=== PATIENT | male | born 1930 | race Caucasian/White ===

== ENCOUNTER 2016-10-25 08:56 | Emergency (ER) | payer MEDICARE ==
[2016-10-25 09:56] LABS: SPECIFIC GRAVITY 1.025 (1.001-1.030); URINE BILIRUBIN NEGATIVE (NEGATIVE); URINE BLOOD TRACE (NEGATIVE); URINE GLUCOSE (UA) NEGATIVE (NEGATIVE); URINE LEUKOCYTE ESTERASE NEGATIVE (NEGATIVE); URINE NITRITE NEGATIVE (NEGATIVE); URINE PROTEIN 1+ (NEGATIVE); URINE UROBILINOGEN 1 mg/dL (0-1 mg/dl)
[2016-10-25 09:59] LABS: URINE APPEARANCE HAZY; URINE COLOR AMBER
[2016-10-25 10:05] LABS: URINE BACTERIA FEW; URINE CASTS 0-1 HYLINE /lpf; URINE EPITHELIAL CELLS 0 /hpf; URINE MUCUS 3+; URINE RBC 0-1 /hpf; URINE WBC NEG /hpf
--- NOTE | 2016-10-25 10:26 | CT ---
Name: BECKI VELASQUEZ Exam: CT head without contrast Comparison: None Clinical history: Dizziness Technique: Helical CT was performed through the head. Angled axial reconstructions were obtained. Sagittal and coronal reconstructions were obtained as well. No contrast was given. An automated dose reduction technique was used to minimize patient radiation dose. Findings: There is no shift of midline structures. Atrophy and chronic small vessel ischemic changes present. There is no mass, mass effect or hemorrhage. Cisterns are uneffaced. Posterior fossa is unremarkable. Mucoperiosteal thickening is noted within the paranasal sinuses. Mastoid air cells are clear. There is no fracture. Impression: 1. Atrophy and chronic small vessel ischemic change 2. No acute finding Note: The above report was uploaded to [facility]'s electronic medical records system at 1022 hours.
--- NOTE | 2016-10-25 10:32 | CT ---
BECKI VELASQUEZ Noncontrast CT abdomen and Pelvis COMPARISON:05/21/2016 CLINICAL HISTORY: Right flank pain PROCEDURE: Helical CT using multidetector technique was applied to the abdomen and pelvis. No contrast was given per ordering physician. Sagittal, axial and coronal images are reviewed. Findings CT abdomen (noncontrast): Lung bases clear. Heart is not enlarged. Coronary calcifications present. There is no pericardial effusion. Noncontrast images of the liver show no abnormality. Gallbladder surgically absent. There is no suspicious biliary dilation. There is a 3 mm calcification in the tail of pancreas compatible with prior inflammatory process. The spleen, adrenal glands right kidney IVC and portal vein are normal. There are features compatible left renal scar. Left renal vein is retroaortic. Stomach is decompressed. There is mild scattered stool within the colon. Small bowel is unremarkable. There is no free air, free fluid or suspicious adenopathy. Multilevel degenerative C-spine is present. There is a hemangioma in the T12 vertebral body. CT pelvis (noncontrast): Bladder is empty. Prostate is not enlarged. Seminal vesicles are small but symmetric. There is diverticulosis of the redundant sigmoid colon without current CT evidence for diverticulitis. The appendix is not identified but there is no pericecal stranding. Small bowel and colon diameters are within normal limits. There is no free air, free fluid or suspicious adenopathy. Vascular calcifications are present. Left fat filled inguinal hernia is again identified. IMPRESSION: 1. Distal colonic diverticulosis without current evidence for epiglottitis 2. Left fat filled inguinal hernia and small fat filled umbilical hernia similar to the prior 3. Left renal cortical scar. There is no calculus or hydronephrosis. 4. Surgically absent gallbladder 5. Nonvisualization of the appendix. There are no secondary signs of appendicitis Note:The above report was uploaded to [facility]'s electronic medical records system at 1028 hours.
[2016-10-25] MEDS ORDERED: ONDANSETRON 4 MG ODT TAB ONE (10:52)
[2016-10-25] MEDS ORDERED: OXYCODONE/ACETAMINOPHEN 5/325 MG TABLET ONE (10:52)
[2016-10-25] MEDS ORDERED: CYCLOBENZAPRINE HCL 10 MG TABLET ONE (12:26)
== END 2016-10-25 13:06 | disposition home or self-care (01) ==
LOC: ED 08:56
DX: M54.9 Dorsalgia, unspecified (principal); I50.9 Heart failure, unspecified; E11.9 Type 2 diabetes mellitus without complications; E66.9 Obesity, unspecified; J44.9 Chronic obstructive pulmonary disease, unspecified; J45.909 Unspecified asthma, uncomplicated; Z85.820 Personal history of malignant melanoma of skin; Z99.81 Dependence on supplemental oxygen; Z79.899 Other long term (current) drug therapy
CPT/HCPCS: 81001; 74176; 70450; 99284; 99283; A9270 ×2

== ENCOUNTER 2016-12-28 11:05 | Outpatient (CLI) | payer MEDICARE | END 2016-12-28 11:06 | disposition home or self-care (01) | LOC: NC 11:05 | PROVIDERS: ATTEND Family Medicine | DX: E13.9 Other specified diabetes mellitus without complications (principal); Z71.3 Dietary counseling and surveillance; Z68.37 Body mass index [BMI] 37.0-37.9, adult ==

== ENCOUNTER 2017-01-12 08:33 | Inpatient (IN) | payer MEDICARE ==
[2017-01-12] MEDS ORDERED: ALBUTEROL/IPRATROPIUM 2.5/0.5 MG 3 ML/EACH DOSE ONE (08:47)
[2017-01-12] MEDS ORDERED: METHYLPRED SOD SUCCINATE 125 MG VIAL ONE (08:53)
[2017-01-12] MEDS ORDERED: ALBUTEROL SULFATE 5MG/ML INHALANT 20 ML BOT ONE (08:54)
[2017-01-12 09:19] LABS: ABSOLUTE NEUTROPHIL COUNT 8.5 K/mm3 (1.8-7.7); BASO # 0.1 K/mm3 (0.0-0.2); BASO % 0.5 % (0.2-1.0); EOS # 0.5 (0.0-0.5); EOS % 4.3 % (0.9-2.9); HEMATOCRIT 43.6 % (32.0-52.0); HEMOGLOBIN 13.8 gm/l (14.0-18.0); IMM NEUT # 0.1 K/mm3 (0-0.2); IMM NEUT% 0.4 % (0-1); LYMPH # 1.8 (1.0-4.8); LYMPH % 15.7 % (15-45); MEAN CELL VOLUME 89.9 fl (80.0-94.0); MEAN CORPUSCULAR HEMOGLOBIN 28.5 pg (27.0-31.0); MEAN CORPUSCULAR HGB CONC 31.7 g/dl (33.0-37.0); MEAN PLATELET VOLUME 9.7 fl (7.4-10.4); MONO # 0.7 (0.0-0.8); MONO % 5.7 % (4-12); NEUT % 73.4 % (43-75); PLATELET COUNT 266 K/mm3 (130-400); RED CELL DISTRIBUTION WIDTH 12.9 % (11.5-14.5)
[2017-01-12 09:33] LABS: TROPONIN I 0.01 ng/ml (0.0-0.06)
[2017-01-12 09:35] LABS: ALB/GLOB RATIO 1.3 (>1.0); CALCIUM 9.1 mg/dL (8.6-10.3)
[2017-01-12 09:36] LABS: CKMB ISOENZYME 3.1 ng/ml (0.6-6.3)
--- NOTE | 2017-01-12 10:06 | RAD ---
01/12/2017 9:58 AM CHEST - 2 VIEWS History: Increasing shortness of breath since last night Comparison: 11/13/2016 Findings: Two views of the chest are obtained. The lungs are clear with out effusion or pneumothorax. The cardiomediastinal silhouette is unremarkable.. The osseous structures are intact.. IMPRESSION: No acute intrathoracic process.
[2017-01-12] MEDS ORDERED: AZITHROMYCIN 500 MG in SODIUM CHLORIDE 0.9% 250 ML IV ONE (10:30)
[2017-01-12] MEDS ORDERED: BISACODYL 10 MG SUP PR PRN (11:18)
[2017-01-12] MEDS ORDERED: MAGNESIUM HYDROXIDE 30 ML UDCUP PO PRN (11:18)
[2017-01-12] MEDS ORDERED: BISACODYL 5 MG TABLET.EC PO PRN (11:18)
[2017-01-12] MEDS ORDERED: BLISTEX LIPSTICK 1 EACH TP PRN (11:18)
[2017-01-12] MEDS ORDERED: MENTHOL/CETYLPYRD 1 EACH LOZENGE PO PRN (11:18)
[2017-01-12] MEDS ORDERED: METHYLPRED SOD SUCCINATE 40 MG VIAL IV SCH (11:18)
[2017-01-12] MEDS ORDERED: ACETAMINOPHEN 325 MG TABLET PO PRN (11:18)
[2017-01-12] MEDS ORDERED: SODIUM CHLORIDE 0.9% 100 ML IV PRN (11:18)
[2017-01-12 11:39] VITALS: BMI 34.9
[2017-01-12] MEDS: ALBUTEROL/IPRATROPIUM 2.5/0.5 MG 3 ML/EACH DOSE IH SCH ×3 (12:09→19:03)
[2017-01-12] MEDS: ENOXAPARIN SODIUM 40 MG/0.4 ML SYRINGE SUB-Q SCH (12:50)
[2017-01-12] MEDS ORDERED: LIDOCAINE 5% PATCH TP SCH (12:56)
[2017-01-12] MEDS: SPIRONOLACTONE 25 MG TABLET PO SCH (13:43)
[2017-01-12] MEDS: POTASSIUM CHLORIDE 20 MEQ TAB.PRT.SR PO SCH (13:43)
[2017-01-12] MEDS: FUROSEMIDE 40 MG TABLET PO SCH (13:43)
[2017-01-12] MEDS: CLOTRIMAZOLE 1% 15 APPLIC/15 G CREAM TP SCH ×2 (13:43→20:01)
[2017-01-12] MEDS: FLUTICASONE/SALMETEROL 250/50 14 PUFFS/DISK IH SCH ×2 (13:44→20:00)
[2017-01-12] MEDS: METHYLPRED SOD SUCCINATE 40 MG VIAL IV SCH ×2 (14:54→20:00)
[2017-01-12] MEDS ORDERED: LIDOCAINE 5% PATCH TP PRN (15:13)
--- NOTE | 2017-01-12 15:13 | HP ---
BECKI VELASQUEZ [id number] DATE OF ADMISSION: January 12, 2017 CHIEF COMPLAINT: Shortness of breath. HISTORY OF PRESENT ILLNESS: The patient is an 86-year-old male with a past medical history significant for chronic hypoxic respiratory failure on oxygen for chronic obstructive pulmonary disease and asthma who also has a history of obstructive sleep apnea intolerant to CPAP and diabetes and presents with complaints of worsening dyspnea and cough for the last two weeks. He has noticed some increased orthopnea but no increased lower extremity edema during this time. His cough is productive of slightly discolored sputum without hemoptysis. He denies any chest pain or fevers and chills. He has had increased shortness of breath. He has been increasing his nebulizer treatments but in spite of this, worsened and presented to the emergency department where he was stabilized with albuterol nebulizers and solumedrol. He was also started on Zithromax for presumed acute bacterial bronchitis. REVIEW OF SYSTEMS: He has had no recent fevers or chills. He does have some increased weakness with his illness. He denies any recent upper respiratory symptoms. He denies any chest pains or palpitations. He has had some increased wheezing and dyspnea, mild orthopnea. No change in his chronic lower extremity edema, however. He has had no nausea or vomiting, no abdominal pain. No diarrhea or constipation. No headaches, fainting, blackouts or seizures. No urinary complaints. His review of systems is otherwise negative. PAST MEDICAL HISTORY: 1. Is negative for any recent hospitalizations. 2. He has a history of chronic obstructive pulmonary disease followed by [facility], Dr. Doll. He is on chronic home oxygen therapy generally at rate of 3 liters by nasal cannula. Spirometry in the trackmobile operator's office showed moderate air flow obstruction. He has had a history of asthma as a child and has had no significant tobacco use, but has had a lot of particulate exposure during his working years. 3. He has had adult onset diabetes recently diagnosed in the last month and is on oral medications for this. 4. He has had a history of diastolic heart failure several years ago in [facility]. He is not followed by a pneumatic jack operator. 5. He has had a history of malignant melanoma involving the skin, currently in remission after surgical resection. 6. He has had benign prostatic hypertrophy. 7. Hyperlipidemia. 8. Chronic back pain. 9. 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 10. 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 PAST SURGICAL HISTORY: 1. Two prior malignant melanoma excisions from the back including a skin graft. 2. He had a laparoscopic cholecystectomy several years ago in [place]. 3. He has had surgery on his left hand after trauma. 4. He had a remote appendectomy and a remote tonsillectomy. 5. 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 6. He had a transurethral prostatectomy years ago. 7. He has had prior cardiac angiogram in 2005. Results are not available. ALLERGIES: 1. INTOLERANCE TO MORPHINE. 2. ALLERGY TO PENICILLIN. CURRENT MEDICATIONS: Consist of: 1. Albuterol sulfate 2.5 mg nebulized every six hours as needed for wheezing. 2. Percocet 5/325 one to two every four hours as needed for severe pain although he avoids taking this. Generally he only takes it once or twice a year due to side effects. 3. He has albuterol HFA inhaler one to two puffs every four hours as needed for wheezing. 4. Spironolactone 25 mg daily. 5. Potassium chloride 20 mEq daily. 6. Fish oil 1000 mg daily. 7. Lidocaine 5% patch applied to the back when he is having severe pain but not every day. 8. Lasix 40 mg daily. 9. Advair Diskus inhaler 250/50 mcg. It is prescribed one inhalation twice daily but he usually just takes one inhalation once daily due to the cost of the medicine. 10. He also takes an enteric coated aspirin 81 mg daily. FAMILY HISTORY: Positive for a mother with Alzheimer's disease, brother with diabetes and several siblings with asthma. There is also a history of colon cancer in the family. PHYSICAL EXAMINATION: VITAL SIGNS: Temperature is 97.6, pulse 101, blood pressure 117/64, respirations 18 currently, were as high as 26 initially, oxygen saturation 95% on three liters. Body mass index is 35. Weight is 104.3 kilograms. GENERAL: This is an obese male in mild respiratory distress. HEENT: Shows moist, pink oral mucosa, no lesions. NECK: Is supple without lymphadenopathy or thyromegaly. CHEST: Lungs are diminished throughout with some faint wheezes. CARDIOVASCULAR: Exam reveals a mild regular tachycardia. No murmur. ABDOMEN: Is obese, soft, nontender, nondistended with positive bowel sounds. EXTREMITIES: Show no lesions at his left below the knee amputation stump. He does have trace to 1+ peripheral edema in his right lower leg. SKIN: Warm, dry and intact. NEUROLOGIC: He is alert and oriented to place only. DIAGNOSTIC IMAGING STUDIES: Chest x-ray shows no acute cardiopulmonary abnormality. LABORATORY STUDIES: CBC shows a white count mildly elevated at 11.5, hemoglobin is 13.8 with a platelet count of 266,000. Lactate is 1.5. Chemistry profile shows a sodium of 132, potassium 3.9, carbon dioxide 29, BUN 18, creatinine 1.3, glucose 164. Cardiac enzymes and liver function tests are normal. ELECTROCARDIOGRAM: A 12-lead electrocardiogram showing sinus rhythm with a right bundle branch block and evidence of a left anterior fascicular block. ASSESSMENT: 1. Patient is having a chronic obstructive pulmonary disease exacerbation with acute bacterial bronchitis. He also has a history of asthma with a mild exacerbation of that as well. 2. He has chronic hypoxic respiratory failure on home oxygen therapy. 3. He has adult onset diabetes on oral medications. 4. Benign prostatic hypertrophy which is stable. 5. Dementia which is stable. Uncertain whether this is Alzheimer's type versus vascular dementia. PLAN: 1. He is admitted to the medical/surgical unit. 2. He will be treated with IV solumedrol, oxygen supplementation, DuoNebs, albuterol as needed and Zithromax 500 mg IV daily times three. 3. Anticipate he will stay for 48 to 72 hours. 4. Venous thromboembolism prophylaxis is indicated as he is moderate risk and is prescribed in the form of Lovenox. 5. Further treatment and recommendations will depend on his hospital course. 6. We did discuss code status, and his and the patient were clear he is wanting primarily limited additional interventions and probably would not want even positive airway pressure at this point and does not want to be intubated or resuscitated. cc: Kar Oropeza M.D.
[2017-01-12] MEDS: INSULIN ASPART (DOSE) 100 UNITS/1 ML SUB-Q PRN ×2 (17:35→22:20)
[2017-01-12] MEDS: DOCUSATE SODIUM 100 MG CAPSULE PO SCH (20:00)
[2017-01-12] MEDS: ALBUTEROL NEB 2.5 MG/3 ML VIAL.NEB IH PRN (22:38)
[2017-01-13] MEDS: DIPHENHYDRAMINE HCL 25 MG CAPSULE PO PRN ×2 (00:33→21:45)
[2017-01-13] MEDS: ALBUTEROL NEB 2.5 MG/3 ML VIAL.NEB IH PRN ×4 (01:55→23:45)
[2017-01-13] MEDS: METHYLPRED SOD SUCCINATE 40 MG VIAL IV SCH ×4 (02:09→21:35)
[2017-01-13 06:30] LABS: CALCIUM 9.2 mg/dL (8.6-10.3)
[2017-01-13] MEDS: INSULIN ASPART (DOSE) 100 UNITS/1 ML SUB-Q PRN ×4 (07:49→21:46)
[2017-01-13] MEDS: ALBUTEROL/IPRATROPIUM 2.5/0.5 MG 3 ML/EACH DOSE IH SCH ×4 (08:05→20:12)
[2017-01-13] MEDS: DOCUSATE SODIUM 100 MG CAPSULE PO SCH ×2 (08:35→21:35)
[2017-01-13] MEDS: POTASSIUM CHLORIDE 20 MEQ TAB.PRT.SR PO SCH (08:35)
[2017-01-13] MEDS: PANTOPRAZOLE 40 MG TABLET DR PO SCH (08:35)
[2017-01-13] MEDS: FUROSEMIDE 40 MG TABLET PO SCH (08:35)
[2017-01-13] MEDS ORDERED: LACTATED RINGERS 500 ML IV ONE (08:35)
[2017-01-13] MEDS: SPIRONOLACTONE 25 MG TABLET PO SCH (08:36)
[2017-01-13] MEDS: FLUTICASONE/SALMETEROL 250/50 14 PUFFS/DISK IH SCH ×2 (08:36→21:45)
[2017-01-13] MEDS: ASPIRIN (ENTERIC COATED) 81 MG TABLET.EC PO SCH (08:36)
[2017-01-13] MEDS: CLOTRIMAZOLE 1% 15 APPLIC/15 G CREAM TP SCH ×2 (08:42→21:45)
[2017-01-13] MEDS: INSULIN GLARGINE (DOSE) 100 UNITS/ML UNIT SUB-Q SCH (08:49)
[2017-01-13] MEDS ORDERED: PUMP TUBING ONE (08:50)
[2017-01-13] MEDS ORDERED: Non Formulary Drug 1 EACH EA (Omega-3 Fatty Acids/Fish Oil [Fish Oil 1,000 Mg Softgel] 1 E PO SCH (09:00)
[2017-01-13] MEDS: NITROGLYCERIN 0.4 MG/TAB.SUBL BOT SL PRN ×4 (09:18→22:38)
[2017-01-13] MEDS: AZITHROMYCIN 500 MG in SODIUM CHLORIDE 0.9% 250 ML IV SCH (10:25)
[2017-01-13] MEDS: ENOXAPARIN SODIUM 40 MG/0.4 ML SYRINGE SUB-Q SCH (11:11)
[2017-01-13] MEDS ORDERED: FLUTICASONE/SALMETEROL 250/50 14 PUFFS/DISK IH SCH (11:30)
--- NOTE | 2017-01-13 12:32 | PDOC43 ---
- Subjective Chief Complaint: shortness of breath Subjective: Reports Shortness of Breath (stable), Reports Chest Pain (occured this am resolved after one NTG), Denies Vomiting, Denies Fever - Objective Vital Signs Temperature 98.3 F 01/13/17 11:43 Pulse Rate 100 01/13/17 12:04 Respiratory Rate 20 01/13/17 12:04 Blood Pressure 118/73 01/13/17 11:43 O2 Saturation by Pulse Oximetry 95 01/13/17 12:04 Oxygen Delivery Method Nasal Cannula Oxygen Flow Rate 3 Intake and Output 01/12/17 01/13/17 01/14/17 06:59 06:59 06:59 Intake Total 2049 Output Total 2049 Balance 0 General: Alert, Cooperative, No Acute Distress HEENT: Mucous membr. moist/pink Lungs: Diminished at Bases Cardiovascular: Regular Rate and Rhythm Abdomen: Soft, Normal Bowel Sounds, Non-Distended, No Tenderness Extremities: Other (left BKA site clean and dry), No Edema Skin: Warm, Dry, Intact Laboratory 01/13/17 05:30 01/13/17 01/13/17 01/13/17 11:19 07:44 05:30 Estimated GFR 48 L POC Capillary Glucose 254 H 249 H 01/12/17 01/12/17 22:08 17:03 Estimated GFR POC Capillary Glucose 293 H 256 H Current Medications: Current meds reviewed in EMR. - Problems: Assessment/Plan (1) COPD (chronic obstructive pulmonary disease) with acute bronchitis Status: AcuteAssessment/Plan: presumed bacterial bronchitis with acute on chronic hypoxic respiratory failure On Zithromax, Solu-Medrol and nebs - SUPERINTENDENT NONSELLING (2) Diabetes Qualifiers: Diabetes mellitus type: type 2 Diabetes mellitus complication status: with hyperglycemia Diabetes mellitus terminal worker insulin use: without chcf use Qualifier Code: (E11.65) Type 2 diabetes mellitus with hyperglycemia Status: ChronicAssessment/Plan: recently diagnosed and started on Metformin, hyperglycemia aggravated by steroids - cont Novolog, Hold Metformin for 72hrs due to IV contrast, adding Lantus (3) BPH (benign prostatic hyperplasia) Qualifiers: Prostatic enlargement morphology: unspecified morphology Lower urinary tract symptom presence: symptoms present Qualifier Code: (N40.1) Benign prostatic hyperplasia with lower urinary tract symptoms Status: Acute Assessment/Plan: stable, adequate urination but has frequency (4) Chest pain Qualifiers: Chest pain type: unspecified Qualifier Code: (R07.9) Chest pain, unspecified Status: AcuteAssessment/Plan: etiology unclear, could be angina or dyspepsia from steroids, resolved after NTG times one, no further workup given resolution of symptoms, advanced age and code status - NTG PRN, will follow, no changes on tele (5) Dementia Qualifiers: Dementia type: unspecified type Dementia behavioral disturbance: without behavioral disturbance Qualifier Code: (F03.90) Unspecified dementia without behavioral disturbance Status: AcuteAssessment/Plan: severe but stable, no behavioral disturbance (6) CHF (congestive heart failure) Qualifiers: Congestive heart failure type: diastolic Congestive heart failure chronicity: chronic Qualifier Code: (I50.32) Chronic diastolic (congestive) heart failure Status: AcuteAssessment/Plan: appears stable (7) CKD (chronic kidney disease), stage II Status: ChronicAssessment/Plan: stable at baseline VTE Prophylaxis: lovenox Disposition: home in 1-2 days
[2017-01-13] MEDS: ALPRAZOLAM 0.25 MG TABLET PO PRN (21:45)
[2017-01-13 23:44] LABS: A1C-GLYCOHEMOGLOBIN 0.8 g/dl; HEMOGLOBIN-GLYCO 13.1 g/dl
[2017-01-14] MEDS ORDERED: ALPRAZOLAM 1 MG TABLET ONE (00:13)
[2017-01-14] MEDS: LORAZEPAM 2 MG/ML 1ML SDV IV ONE ×2 (00:16→08:02)
[2017-01-14] MEDS: METHYLPRED SOD SUCCINATE 40 MG VIAL IV SCH ×4 (03:48→21:03)
[2017-01-14] MEDS: ALPRAZOLAM 0.25 MG TABLET PO PRN ×2 (03:56→21:18)
[2017-01-14] MEDS: ALBUTEROL NEB 2.5 MG/3 ML VIAL.NEB IH PRN (04:00)
[2017-01-14] MEDS ORDERED: ALPRAZOLAM 0.5 MG TABLET PO ONE (04:24)
[2017-01-14 06:29] LABS: CALCIUM 9.3 mg/dL (8.6-10.3)
[2017-01-14] MEDS ORDERED: LORAZEPAM 2 MG/ML 1ML SDV ONE (07:55)
[2017-01-14] MEDS: ALBUTEROL/IPRATROPIUM 2.5/0.5 MG 3 ML/EACH DOSE IH SCH ×4 (07:58→20:10)
[2017-01-14] MEDS: INSULIN ASPART (DOSE) 100 UNITS/1 ML SUB-Q PRN ×4 (08:32→21:16)
[2017-01-14] MEDS: INSULIN GLARGINE (DOSE) 100 UNITS/ML UNIT SUB-Q SCH (08:33)
[2017-01-14] MEDS: FLUTICASONE/SALMETEROL 250/50 14 PUFFS/DISK IH SCH ×2 (09:05→21:03)
[2017-01-14] MEDS: ASPIRIN (ENTERIC COATED) 81 MG TABLET.EC PO SCH (09:06)
[2017-01-14] MEDS: DOCUSATE SODIUM 100 MG CAPSULE PO SCH ×2 (09:06→21:03)
[2017-01-14] MEDS: PANTOPRAZOLE 40 MG TABLET DR PO SCH (09:06)
[2017-01-14] MEDS: CLOTRIMAZOLE 1% 15 APPLIC/15 G CREAM TP SCH ×2 (09:07→21:03)
[2017-01-14] MEDS ORDERED: PUMP TUBING ONE (10:41)
[2017-01-14] MEDS: ENOXAPARIN SODIUM 40 MG/0.4 ML SYRINGE SUB-Q SCH (10:56)
[2017-01-14] MEDS: AZITHROMYCIN 500 MG in SODIUM CHLORIDE 0.9% 250 ML IV SCH (10:56)
--- NOTE | 2017-01-14 13:04 | PDOC43 ---
- Subjective Chief Complaint: shortness of breath Subjective: Reports Shortness of Breath (slowly improving), Denies Chest Pain, Denies Fever - Objective Vital Signs Temperature 97.6 F 01/14/17 11:00 Pulse Rate 97 01/14/17 11:59 Respiratory Rate 22 01/14/17 11:59 Blood Pressure 117/72 01/14/17 11:00 O2 Saturation by Pulse Oximetry 98 01/14/17 11:59 Oxygen Delivery Method Nasal Cannula Oxygen Flow Rate 2 Intake and Output 01/13/17 01/14/17 01/15/17 06:59 06:59 06:59 Intake Total 2049 2800 Output Total 2049 3300 Balance 0 -500 General: Alert, Cooperative, No Acute Distress HEENT: Mucous membr. moist/pink Lungs: Diminished at Bases, Other (occ wheezing) Cardiovascular: Regular Rate and Rhythm Abdomen: Soft, Normal Bowel Sounds, Non-Distended, No Tenderness Extremities: No Edema Skin: Warm, Dry, Intact Laboratory 01/14/17 05:30 01/14/17 01/14/17 01/13/17 08:05 05:30 21:37 BUN 27 H Estimated GFR 52 L POC Capillary Glucose 220 H 217 H 01/13/17 17:16 BUN Estimated GFR POC Capillary Glucose 210 H Current Medications: Current meds reviewed in EMR. - Problems: Assessment/Plan (1) COPD (chronic obstructive pulmonary disease) with acute bronchitis Status: AcuteAssessment/Plan: presumed bacterial bronchitis with acute on chronic hypoxic respiratory failure On Zithromax, Solu-Medrol and nebs - switch to PO prednisone in am (2) Diabetes Qualifiers: Diabetes mellitus type: type 2 Diabetes mellitus complication status: with hyperglycemia Diabetes mellitus petroleum terminal plant operator insulin use: without detention use Qualifier Code: (E11.65) Type 2 diabetes mellitus with hyperglycemia Status: ChronicAssessment/Plan: recently diagnosed and started on Metformin, hyperglycemia aggravated by steroids, HGB A1C is 7.5, worsening hyperglycemia likely due to steroids - cont Novolog, Hold Metformin for 72hrs due to IV contrast, Lantus started on 01/13 (3) BPH (benign prostatic hyperplasia) Qualifiers: Prostatic enlargement morphology: unspecified morphology Lower urinary tract symptom presence: symptoms present Qualifier Code: (N40.1) Benign prostatic hyperplasia with lower urinary tract symptoms Status: Acute Assessment/Plan: stable, adequate urination but has frequency (4) Chest pain Qualifiers: Chest pain type: unspecified Qualifier Code: (R07.9) Chest pain, unspecified Status: AcuteAssessment/Plan: occured in am on 01/13 etiology unclear, could be angina or dyspepsia from steroids, resolved after NTG times one, no further workup given resolution of symptoms, advanced age and code status, troponin is normal - NTG PRN, will follow, no changes on tele (5) Dementia Qualifiers: Dementia type: unspecified type Dementia behavioral disturbance: without behavioral disturbance Qualifier Code: (F03.90) Unspecified dementia without behavioral disturbance Status: AcuteAssessment/Plan: severe but stable, no behavioral disturbance (6) CHF (congestive heart failure) Qualifiers: Congestive heart failure type: diastolic Congestive heart failure chronicity: chronic Qualifier Code: (I50.32) Chronic diastolic (congestive) heart failure Status: AcuteAssessment/Plan: appears stable (7) CKD (chronic kidney disease), stage II Status: ChronicAssessment/Plan: stable at baseline VTE Prophylaxis: lovenox Disposition: home in am
[2017-01-14] MEDS: DIPHENHYDRAMINE HCL 25 MG CAPSULE PO PRN (21:18)
[2017-01-15] MEDS: ALBUTEROL NEB 2.5 MG/3 ML VIAL.NEB IH PRN (01:36)
[2017-01-15] MEDS: ALPRAZOLAM 0.25 MG TABLET PO PRN ×2 (02:08→07:40)
[2017-01-15] MEDS: METHYLPRED SOD SUCCINATE 40 MG VIAL IV SCH (02:08)
[2017-01-15] MEDS ORDERED: GLIMEPIRIDE 2 MG TABLET PO ONE (06:49)
[2017-01-15] MEDS: ALBUTEROL/IPRATROPIUM 2.5/0.5 MG 3 ML/EACH DOSE IH SCH ×2 (07:03→11:07)
[2017-01-15] MEDS ORDERED: METFORMIN HCL 500 MG TABLET PO SCH (07:30)
[2017-01-15] MEDS: INSULIN GLARGINE (DOSE) 100 UNITS/ML UNIT SUB-Q SCH (08:28)
[2017-01-15] MEDS: INSULIN ASPART (DOSE) 100 UNITS/1 ML SUB-Q PRN ×2 (08:28→11:36)
[2017-01-15] MEDS ORDERED: PREDNISONE 20 MG TABLET PO SCH (09:00)
[2017-01-15] MEDS: DOCUSATE SODIUM 100 MG CAPSULE PO SCH (09:48)
[2017-01-15] MEDS: CLOTRIMAZOLE 1% 15 APPLIC/15 G CREAM TP SCH (09:48)
[2017-01-15] MEDS: FLUTICASONE/SALMETEROL 250/50 14 PUFFS/DISK IH SCH (09:48)
[2017-01-15] MEDS: PANTOPRAZOLE 40 MG TABLET DR PO SCH (09:48)
[2017-01-15] MEDS: ASPIRIN (ENTERIC COATED) 81 MG TABLET.EC PO SCH (09:48)
[2017-01-15] MEDS: ENOXAPARIN SODIUM 40 MG/0.4 ML SYRINGE SUB-Q SCH (11:36)
[2017-01-15 12:02] VITALS: BP 119/76
[2017-01-15] MEDS ORDERED: GUAIFENESIN 600 MG TABLET.DR PO SCH (12:15)
--- NOTE | 2017-01-16 15:09 | DS ---
BECKI VELASQUEZ [id number] DATE OF ADMISSION: January 12, 2017 DATE OF DISCHARGE: January 15, 2017 DISCHARGE DIAGNOSES: Chronic obstructive pulmonary disease exacerbation with acute bacterial bronchitis. OTHER DIAGNOSES: Include: 1. Chronic persistent asthma. 2. Acute on chronic hypoxic respiratory failure. 3. Adult onset diabetes. 4. Benign prostatic hypertrophy. 5. Senile dementia. 6. History of chronic diastolic congestive heart failure. 7. History of stage 2 kidney disease. SUMMARY OF ADMISSION AND HOSPITAL COURSE: The patient is an 86-year-old male with chronic hypoxic respiratory failure on home oxygen therapy and chronic obstructive pulmonary disease who presented with complaints of increasing shortness of breath, cough, and dyspnea. He was evaluated in the emergency department, found to be more tachypneic than baseline and also more hypoxic than at baseline. Chest x-ray showed no acute cardiopulmonary abnormality but CBC showed a mildly elevated white blood cell count of 11.5. Lactate was normal. Creatinine was 1.3 consistent with the patient's baseline chronic kidney disease. He was noted to have increased wheezing and increased work of breathing and was referred to the hospitalist service for admission. The patient was initially treated with solumedrol, Rocephin and Zithromax. He completed a three-day course of Zithromax during his stay. He was transitioned over to oral prednisone during his stay. He was noted to have steroid-induced hyperglycemia managed with Lantus insulin and glimepiride. He was felt to be medically stable for discharge on January 15, 2017. PHYSICAL EXAM: VITAL SIGNS: His discharge vital signs showed a temperature of 98.0, pulse 90, blood pressure is 119/76, respirations 19, oxygen saturation 92% on one liter. Body mass index of 35.9 and a weight of 107.1 kilograms. GENERAL: This is an obese, elderly male in no acute distress. HEENT: Is unremarkable. LUNGS: Reveal diminished breath sounds throughout with scattered wheezing. CARDIOVASCULAR: Exam reveals a regular rate and rhythm without a murmur. ABDOMEN: Is obese, soft, nontender, nondistended with positive bowel sounds. EXTREMITIES: Show no peripheral edema. LABORATORY STUDIES: Done on the day of discharge included none. However, on the day prior to discharge, January 14, 2017, he had a chemistry panel showing a sodium of 136, potassium 4.1, creatinine 1.3, and a glucose of 243. DISPOSITION: Home. DISCHARGE CONDITION: Good. ALLERGIES: 1. PENICILLIN. 2. MORPHINE. CODE STATUS: DO NOT RESUSCITATE/DO NOT INTUBATE. DIET: Diabetic diet. DISCHARGE MEDICATIONS: Include: 1. A new prescription for alprazolam 0.25 mg tablets. He can take one-half tablet every four hours as needed for anxiety, 30 pills, no refills. 2. Keflex 500 mg three times daily for seven days. 3. Glimepiride 2 mg daily for eight days. 4. Guaifenesin LA 600 mg twice daily for 20 days. 5. Prednisone taper 40 mg daily for one day, 20 mg daily for three days and 10 mg daily for ten days. 6. He will resume enteric coated aspirin 81 mg daily. 7. Advair 250/50 mcg inhaler one puff twice daily. 8. Lasix 40 mg every morning. 9. Lidocaine 5% patch applied to painful area daily. 10. Fish oil 1000 mg daily. 11. Potassium chloride 20 mEq daily. 12. Aldactone 25 mg daily. 13. Albuterol HFA inhaler one to two puffs every four hours as needed for wheezing. 14. Percocet one to two tablets every four hours as needed for severe pain. He uses this rarely. 15. Albuterol nebs 2.5 mg every six hours as needed for wheezing. 16. Metformin 1000 mg daily. FOLLOWUP: He will follow up with his primary care provider, Dr. Kar Oropeza, as scheduled on February 26, 2017 at 2:15. Cc: Kar Oropeza M.D.
== END 2017-01-15 15:25 | disposition home or self-care (01) | DRG 191 ==
LOC: ED 08:33 → MS 10:18
PROVIDERS: ADMIT Family Medicine; ATTEND Family Medicine
DX: J44.1 Chronic obstructive pulmonary disease with (acute) exacerbation (principal); J96.11 Chronic respiratory failure with hypoxia; I50.20 Unspecified systolic (congestive) heart failure; J20.9 Acute bronchitis, unspecified; J44.0 Chronic obstructive pulmonary disease with (acute) lower respiratory infection; J45.909 Unspecified asthma, uncomplicated; G47.33 Obstructive sleep apnea (adult) (pediatric); Z79.84 Long term (current) use of oral hypoglycemic drugs; N40.0 Benign prostatic hyperplasia without lower urinary tract symptoms; E78.5 Hyperlipidemia, unspecified; M54.89 Other dorsalgia; Z89.9 Acquired absence of limb, unspecified; Z66 Do not resuscitate; E11.22 Type 2 diabetes mellitus with diabetic chronic kidney disease; N18.2 Chronic kidney disease, stage 2 (mild)